=== PATIENT | female | born 1940 | race Caucasian/White ===

== ENCOUNTER → 2018-06-26 | Outpatient (CLI) | payer MEDICARE, BC ==
--- NOTE | 2018-06-26 12:17 | XR ---
EXAMINATION TYPE: XR chest 2V DATE OF EXAM: 06/26/2018 COMPARISON: 08/05/2016 TECHNIQUE: PA and lateral views submitted. HISTORY: Presurgical FINDINGS: The lungs are clear and there is no pneumothorax, pleural effusion, or focal pneumonia. Biapical pl eural thickening. Hyperinflation suggests COPD. Atherosclerotic change aorta. Hypertrophic and degene rative change of the spine. Diffuse osteopenia and arthropathy of the shoulders. IMPRESSION: 1. No acute process. Correlate for COPD.
== END | disposition home or self-care (01) ==
LOC: RADXRMAIN 11:45
PROVIDERS: ATTEND Internal Medicine
DX: Z01.818 Encounter for other preprocedural examination (principal)
CPT/HCPCS: 71046

== ENCOUNTER → 2018-12-20 | Outpatient (CLI) | payer MEDICARE, BC ==
--- NOTE | 2018-12-20 12:39 | XR ---
EXAMINATION TYPE: XR chest 2V DATE OF EXAM: 12/20/2018 COMPARISON: 06/26/2018 TECHNIQUE: PA and lateral views submitted. HISTORY: Preop FINDINGS: The lungs are clear and there is no pneumothorax, pleural effusion, or focal pneumonia. Hyperinflat ion suggests COPD and there is biapical pleural thickening. Diffuse osteopenia and arthropathy should ers. Atherosclerotic change of aorta. Nodule at the right lung base likely represents nipple shadow. Hypertrophic and degenerative change of the spine. IMPRESSION: 1. No acute process. Probable nipple shadow right lung base which could be confirmed with repeat exam with nipple markers.
== END | disposition home or self-care (01) ==
LOC: RADXRMAIN 12:08
PROVIDERS: ATTEND Internal Medicine
DX: Z01.818 Encounter for other preprocedural examination (principal)
CPT/HCPCS: 71046

== ENCOUNTER → 2019-04-09 | Outpatient (CLI) | payer MEDICARE, BC ==
--- NOTE | 2019-04-09 16:01 | XR ---
EXAMINATION TYPE: XR chest 2V DATE OF EXAM: 04/09/2019 COMPARISON: Prior chest x-ray 12/20/2018 HISTORY: Preop TECHNIQUE: Frontal and lateral views of the chest are obtained. FINDINGS: The aorta is dense. There is no focal air space opacity, pleural effusion, or pneumothorax seen. The cardiac silhouette size is stable, small. Apical pleural thickening is again noted. Dista l right clavicle shows stable postop resection change. Prominent lung volumes compatible with underly ing COPD. There is thoracic spondylosis. The osseous structures are intact. IMPRESSION: No acute cardiopulmonary process.
== END ==
LOC: RADXRMAIN 15:40
PROVIDERS: ATTEND Internal Medicine
DX: Z01.818 Encounter for other preprocedural examination (principal)
CPT/HCPCS: 71046

== ENCOUNTER 2021-08-06 13:07 | Inpatient (IN) | payer MEDICARE, BC ==
[2021-08-06] MEDS ORDERED: SODIUM CHLORIDE 0.9% 500 ML 500 ML IV STA (13:19)
[2021-08-06] MEDS ORDERED: ONDANSETRON 4 MG/2 ML VIAL IVP STA ×2 (13:19→17:38)
--- NOTE | 2021-08-06 13:34 | ED ---
General Adult HPI <Johnie Oshea - Last Filed: 08/07/21 00:20> - General Source: EMS Mode of arrival: EMS Limitations: no limitations <Gigi Whittington - Last Filed: 08/07/21 07:40> - General Chief complaint: Abdominal Pain Stated complaint: back & abd pain Time Seen by Provider: 08/06/21 13:18 - History of Present Illness Initial comments: Dictation was produced using [employer] dictation software. please excuse any grammatical, word or spelling errors. Chief Complaint: 81-year-old female multiple comorbidities presents with abdominal pain nausea and vomiting History of Present Illness: 81-year-old female she states that she's had a lump in her abdomen for several months. States that he goes in and out. Over the last 4-5 days patient noted that the lump was becoming more painful. She complains of nausea and vomiting. She denies ever been diagnosed with a hernia. No diarrhea. Denies any fevers. She has history of cholecystectomy. The ROS documented in this emergency department record has been reviewed and confirmed by me. Those systems with pertinent positive or negative responses have been documented in the HPI. All other systems are other negative and/or noncontributory. PHYSICAL EXAM: General Impression: Alert and oriented x3, not in acute distress HEENT: Normocephalic atraumatic, extra-ocular movements intact, pupils equal and reactive to light bilaterally, mucous membranes moist. Cardiovascular: Heart regular rate and rhythm Chest: Able to complete full sentences, no retractions, no tachypnea Abdomen: abdomen soft, palpatory mass to the epigastric area, hard round. Reduction was attempted with no success, Non-distended, no organomegaly Musculoskeletal: Pulses present and equal in all extremities, no peripheral edema Motor: no focal deficits noted Neurological: CN II-XII grossly intact, no focal motor or sensory deficits noted Skin: Intact with no visualized rashes Psych: Normal affect and mood ED course: 81-year-old female presents to the emergency department clinical presentation concerning for abdominal mass. differential includes incarcerated vs. strangulated hernia, and non specific abdominal mass. vital signs upon arri rasheed are within acceptable limits. Patient care is signed out to Dr. Oshea for follow-up of CT imaging results. Labs are unremarkable. Mild leukocytosis of 11.7. (Gigi Whittington) - Related Data Home Medications Medication Instructions Recorded Confirmed diazePAM [Diazepam] 5 mg PO BID PRN 10/20/14 08/06/21 HYDROcodone/APAP 5-325MG [Lehr 1 tab PO TID PRN 08/06/21 08/06/21 5-325] Allergies Allergy/AdvReac Type Severity Reaction Status Date / Time aspirin Allergy NASAL Verified 08/06/21 17:26 CONGESTON ibuprofen [From Motrin] Allergy Itching. Verified 08/06/21 17:26 NASAL CONGESTION levofloxacin [From Levaquin] Allergy Unknown Verified 08/06/21 17:26 primidone [From Mysoline] Allergy INCOHERENT Verified 08/06/21 17:26 propranolol HCl Allergy PALPATATION Verified 08/06/21 17:26 [From Inderal LA] S rofecoxib Allergy Unknown Verified 08/06/21 17:26 Sulfa (Sulfonamide Allergy Unknown Verified 08/06/21 17:26 Antibiotics) NON-STEROIDAL Allergy Itching Uncoded 08/05/16 10:54 ANTI-INFLAMMTORY AGEN Review of Systems ROS Other: All systems not noted in ROS Statement are negative. <Johnie Oshea - Last Filed: 08/07/21 00:20> ROS Other: All systems not noted in ROS Statement are negative. <Gigi Whittington - Last Filed: 08/07/21 07:40> ROS Statement: Those systems with pertinent positive or pertinent negative responses have been documented in the HPI. Past Medical History Past Medical History: Cancer, Chest Pain / Angina, COPD, GERD/Reflux, Hyperli pidemia, Mitral Valve Prolapse (MVP), Neurologic Disorder, Osteoarthritis (OA) Additional Past Medical History / Comment(s): CURRENTLY BEING TREATED FOR UTI. 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 PARKINSON'S WITH Essential TREMORS. VARICOSE VEINS. ARRYTHMIA. DIVERICULOSIS. HIATAL HERNIA. SCOLIOSIS. CHRONIC BACK PAIN. SKIN CANCER. History of Any Multi-Drug Resistant Organisms: None Reported Past Surgical History: Breast Surgery, Cholecystectomy, Heart Catheterization, Orthopedic Surgery, Tonsillectomy Additional Past Surgical History / Comment(s): 1995 HEART CATH. 1995 RIGHT LEG VASCULAR BYPASS. RIGHT CATARACT. LEFT BREAST BX (NEG). RIGHT ROTATOR CUFF. BRAIN SURGERY TO CORRECT TREMER 04/16/19 AT [facility] Past Anesthesia/Blood Transfusion Reactions: No Reported Reaction Past Psychological History: Anxiety Smoking Status: Former smoker Past Alcohol Use History: None Reported Past Drug Use History: None Reported - Past Family History Mother Family Medical History: Cancer, Neurologic Disorder <Gigi Whittington - Last Filed: 08/07/21 07:40> General Exam Limitations: no limitations <Gigi Whittington - Last Filed: 08/07/21 07:40> Course Vital Signs 08/06/21 08/06/21 08/06/21 13:19 14:25 15:25 Temperature 97.1 F L Pulse Rate 93 83 80 Respiratory 20 18 18 Rate Blood Pressure 169/80 156/71 O2 Sat by Pulse 95 96 96 Oximetry 08/06/21 08/06/21 08/06/21 16:25 17:00 18:43 Temperature 97.1 F L Pulse Rate 84 78 78 Respiratory 18 18 18 Rate Blood Pressure 154/73 154/73 O2 Sat by Pulse 96 96 96 Oximetry Medical Decision Making - Lab Data Result diagrams: 08/06/21 13:40 08/06/21 13:40 <Johnie Oshea - Last Filed: 08/07/21 00:20> - Lab Data Result diagrams: 08/06/21 13:40 08/06/21 13:40 <Gigi Whittington - Last Filed: 08/07/21 07:40> - Medical Decision Making Patient is signed out to me pending results of CT imaging and laboratory studies. Of note, patient is blind in her left eye and has chronic tremors. Prior physician was concerning for acute intra-abdominal process for her abdominal pain, nausea, vomiting and lack of appetite. I discussed this with the patient, and I agree with his workup. Laboratory studies were remarkable for a mild leukocytosis of 1.7. Lactate is negative. COVID is negative. Remainder of her labs are unremarkable. CT imaging of her abdomen and pelvis revealed a slightly enlarged AAA, 3.5 cm. There is also an intraluminal noncalcified plaque with occlusion at the iliac bifurcation of unknown chronicity. There is also diverticulosis without diverticulitis. On reevaluation, we did discuss the patient's bilateral lower extremities. She has chronic paresthesias for multiple months to a year of the right upper extremity with intact dopplerable pulses in bilateral lower extremities in the DP and PT region. Patient appears to have developed collaterals to provide blood flow to bilateral lower extremities. I contacted the on-call vascular surgeon, Dr. Saldivar, who is in agreement that there is nothing to be done acutely for these findings, as they are chronic. I discussed with her the results of her imaging and laboratory studies. She is still not tolerating by mouth intake at this time. We discuss admission for IV fluid hydration as well as to treat her nausea and vomiting she was in agreement this plan. She'll be given an additional dose Lehr here in the department. I spoke with the patient's admitting physician, Dr. Ye, who accepted the patient. Patient was therefore admitted to observation for intractable nausea and vomiting and abdominal pain of unknown etiology. She was admitted in stable condition. (Johnie Oshea) - Lab Data Lab Results 08/06/21 08/06/21 08/06/21 Range/Units 13:40 13:40 17:16 WBC 11.7 H (3.8-10.6) k/uL RBC 4.48 (3.80-5.40) m/uL Hgb 13.3 (11.4-16.0) gm/dL Hct 41.5 (34.0-46.0) % MCV 92.6 D (80.0-100.0) fL MCH 29.7 (25.0-35.0) pg MCHC 32.0 (31.0-37.0) g/dL RDW 14.1 (11.5-15.5) % Plt Count 262 (150-450) k/uL MPV 7.2 Neutrophils % 78 % Lymphocytes % 15 % Monocytes % 4 % Eosinophils % 1 % Basophils % 1 % Neutrophils # 9.2 H (1.3-7.7) k/uL Lymphocytes # 1.8 (1.0-4.8) k/uL Monocytes # 0.5 (0-1.0) k/uL Eosinophils # 0.1 (0-0.7) k/uL Basophils # 0.1 (0-0.2) k/uL Sodium 137 (137-145) mmol/L Potassium 4.5 (3.5-5.1) mmol/L Chloride 103 (98-107) mmol/L Carbon Dioxide 22 (22-30) mmol/L Anion Gap 12 mmol/L BUN 13 (7-17) mg/dL Creatinine 0.59 (0.52-1.04) mg/dL Est GFR (CKD-EPI)AfAm >90 (>60 ml/min/1.73 sqM) Est GFR (CKD-EPI)NonAf 86 (>60 ml/min/1.73 sqM) Glucose 109 H (74-99) mg/dL Plasma Lactic Acid Ld 0.9 (0.7-2.0) mmol/L Calcium 9.1 (8.4-10.2) mg/dL Total Bilirubin 0.9 (0.2-1.3) mg/dL AST 26 (14-36) U/L ALT 12 (4-34) U/L Alkaline Phosphatase 101 (38-126) U/L Total Protein 7.0 (6.3-8.2) g/dL Albumin 3.7 (3.5-5.0) g/dL Lipase 76 (23-300) U/L Disposition <Johnie Oshea - Last Filed: 08/07/21 00:20> <Gigi Whittington - Last Filed: 08/07/21 07:40> Clinical Impression: History of abdominal aortic aneurysm (AAA), Abdominal pain of unknown cause, Intractable nausea and vomiting Disposition: ADMITTED IP TO THIS [facility] Condition: Stable
[2021-08-06 14:01] LABS: Basophils # (A) 0.1 k/uL (0-0.2); Basophils % (A) 1 %; Eosinophils # (A) 0.1 k/uL (0-0.7); Eosinophils % (A) 1 %; HCT 41.5 % (34.0-46.0); HGB 13.3 gm/dL (11.4-16.0); Lymphocytes # (A) 1.8 k/uL (1.0-4.8); Lymphocytes % (A) 15 %; MCH 29.7 pg (25.0-35.0); Mean Platelet Volume 7.2; Monocytes # (A) 0.5 k/uL (0-1.0); Monocytes % (A) 4 %; Neutrophils # (A) 9.2 k/uL (1.3-7.7); Neutrophils % (A) 78 %; Platelet Count 262 k/uL (150-450); RBC 4.48 m/uL (3.80-5.40); RDW 14.1 % (11.5-15.5); WBC 11.7 k/uL (3.8-10.6)
[2021-08-06 14:04] LABS: ALT 12 U/L (4-34); AST 26 U/L (14-36); African American GFR (CKD) >90 (>60 ml/min/1.73 sqM); Albumin 3.7 g/dL (3.5-5.0); Alkaline Phosphatase 101 U/L (38-126); Anion Gap 12 mmol/L; Blood Urea Nitrogen 13 mg/dL (7-17); Calcium 9.1 mg/dL (8.4-10.2); Carbon Dioxide 22 mmol/L (22-30); Chloride 103 mmol/L (98-107); Glucose 109 mg/dL (74-99); Lipase 76 U/L (23-300); Non-African American GFR(CKD) 86 (>60 ml/min/1.73 sqM); Potassium 4.5 mmol/L (3.5-5.1); Sodium 137 mmol/L (137-145); Total Bilirubin 0.9 mg/dL (0.2-1.3)
[2021-08-06 14:05] LABS: MCV 92.6 fL (80.0-100.0)
--- NOTE | 2021-08-06 15:32 | CT ---
EXAMINATION TYPE: CT abdomen pelvis w con DATE OF EXAM: 08/06/2021 HISTORY: abdominal pain, painful hernia CT DLP: 627.9mGycm Automated Exposure Control for Dose Reduction was Utilized. CONTRAST: CT scan of the abdomen and pelvis is performed without oral but with IV Contrast, patient injected wi th 100 mL of Isovue 300. COMPARISON: CT abdomen and pelvis July 24, 2015 FINDINGS: LUNG BASES: Dependent atelectasis in both bases. Mild emphysematous change with mild to moderate biba silar linear scarring and/or atelectasis. LIVER/GB: Mild hepatomegaly redemonstrated. Subcentimeter thin-walled cyst left hepatic lobe lateral segment image 12 redemonstrated. Cholecystectomy clips. PANCREAS: No significant abnormality is seen. SPLEEN: No significant abnormality is seen. ADRENALS: No significant abnormality is seen. KIDNEYS: Symmetric cortical medullary uptake and excretion without hydronephrosis seen bilaterally. BOWEL: Suboptimal evaluation without enteric contrast and patient having little intra-abdominal fat. Stomach poorly distended and suboptimally evaluated. No suspicious small or large bowel dilatation. D iffuse colonic diverticula with prominent diverticulosis in the sigmoid colon. Moderate fecal promine nce in the rectum. UTERUS/ADNEXA: Uterus surgically absent or markedly atrophic. Scattered pelvic phleboliths. LYMPH NODES: No greater than 1cm abdominal or pelvic lymph nodes are appreciated. OSSEOUS STRUCTURES: Mild to moderate height loss L1 vertebra redemonstrated. Mild height loss superio r L3 endplate redemonstrated. Vacuum disc phenomenon with moderate right-sided disc space narrowing L 4-L5 level. Osseous structures are demineralized. OTHER: Persistent AAA up to 3.6 cm axial image 28 increased in size from prior. Significant noncalcif ied plaque is noted. There is absent blood flow in the bilateral common iliac arteries. Prominent col lateral vessels in the left abdomen noted. Surgical clips right groin region redemonstrated. IMPRESSION: 1. No obvious new hernia. 2. Enlarging AAA with significant intraluminal noncalcified plaque. Complete occlusion at iliac bifur cation. Correlate clinically for bilateral lower extremity paresthesia symptoms. 3. Prominent distal colonic diverticulosis. No convincing CT evidence for acute diverticulitis. Moder [id number] rectal fecal stasis. Overall nonobstructive bowel gas pattern.
[2021-08-06] MEDS ORDERED: HYDROcodone/APAP 5-325MG 1 EACH TAB PO STA ×2 (17:24→17:38)
[2021-08-06] MEDS ORDERED: SODIUM CHLORIDE 0.9% 1,000 ML IV STA (17:38)
[2021-08-06] MEDS ORDERED: ONDANSETRON 4 MG/2 ML VIAL IVP PRN (17:42)
[2021-08-06] MEDS ORDERED: NALOXONE 0.4 MG/ML 1 ML VIAL IV PRN (17:42)
[2021-08-06] MEDS: diazePAM 5 MG TAB PO PRN (22:27)
[2021-08-07] MEDS: HYDROcodone/APAP 5-325MG 1 EACH TAB PO PRN ×3 (01:03→22:56)
[2021-08-07 11:48] LABS: Basophils # (A) 0.1 k/uL (0-0.2); Basophils % (A) 1 %; Eosinophils # (A) 0.2 k/uL (0-0.7); Eosinophils % (A) 2 %; HCT 34.2 % (34.0-46.0); HGB 11.8 gm/dL (11.4-16.0); Lymphocytes # (A) 1.9 k/uL (1.0-4.8); Lymphocytes % (A) 27 %; MCH 31.4 pg (25.0-35.0); MCHC 34.6 g/dL (31.0-37.0); MCV 90.9 fL (80.0-100.0); Monocytes # (A) 0.3 k/uL (0-1.0); Monocytes % (A) 4 %; Neutrophils # (A) 4.4 k/uL (1.3-7.7); Neutrophils % (A) 62 %; Platelet Count 255 k/uL (150-450); RBC 3.76 m/uL (3.80-5.40); RDW 14.5 % (11.5-15.5)
--- NOTE | 2021-08-07 12:16 | P.HPIM ---
History of Present Illness H&P Date: 08/07/21 Chief Complaint: Nausea and vomiting This is an 81-year-old female patient who presented to the ER with complaints of nausea and right leg numbness. Patient has a past medical history of chest pain, COPD, GERD, hyperlipidemia, Parkinson's disease with essential tremors and chronic back pain. Patient reports that she has had issues with leg numbness ongoing for the past few months. CT of abdomen and pelvis completed showing no obvious hernia. Enlarging AAA with significant intraluminal noncalcified plaque. Complete occlusion of the iliac bifurcation correlate clinically for bilateral lower extremity paresthesia via symptoms. Prominent distal colonic diverticulosis no convincing CT evidence of acute diverticulitis moderate to severe rectal fecal stasis overall nonobstructive bowel gas pattern. At this time vascular surgery and GI services consulted. Patient maintained on normal saline. Repeat labs will be ordered. This time patient is resting comfortably in bed. Patient denies any nausea or vomiting at this time. Patient denies chest pain or shortness breath. Patient is still complaining of right lower infection many numbness pulses present bilaterally Review of Systems Please refer to HPI otherwise unremarkable Past Medical History Past Medical History: Cancer, Chest Pain / Angina, COPD, GERD/Reflux, Hyperlipidemia, Mitral Valve Prolapse (MVP), Neurologic Disorder, Osteoarthritis (OA) Additional Past Medical History / Comment(s): CURRENTLY BEING TREATED FOR UTI. 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 PARKINSON'S WITH Essential TREMORS. VARICOSE VEINS. ARRYTHMIA. DIVERICULOSIS. HIATAL HERNIA. SCOLIOSIS. CHRONIC BACK PAIN. SKIN CANCER. History of Any Multi-Drug Resistant Organisms: None Reported Past Surgical History: Breast Surgery, Cholecystectomy, Heart Catheterization, Orthopedic Surgery, Tonsillectomy Additional Past Surgical History / Comment(s): 1995 HEART CATH. 1995 RIGHT LEG VASCULAR BYPASS. RIGHT CATARACT. LEFT BREAST BX (NEG). RIGHT ROTATOR CUFF. BRAIN SURGERY TO CORRECT TREMER 04/16/[address] [facility] Past Anesthesia/Blood Transfusion Reactions: No Reported Reaction Past Psychological History: Anxiety Smoking Status: Former smoker Past Alcohol Use History: None Reported Past Drug Use History: None Reported - Past Family History Mother Family Medical History: Cancer, Neurologic Disorder Medications and Allergies Home Medications Medication Instructions Recorded Confirmed Type diazePAM [Diazepam] 5 mg PO BID PRN 10/20/14 08/06/21 History HYDROcodone/APAP 5-325MG [[place] 1 tab PO TID PRN 08/06/21 08/06/21 History 5-325] Allergies Allergy/AdvReac Type Severity Reaction Status Date / Time aspirin Allergy NASAL Verified 08/06/21 17:26 CONGESTON ibuprofen [From Motrin] Allergy Itching. Verified 08/06/21 17:26 NASAL CONGESTION levofloxacin [From Levaquin] Allergy Unknown Verified 08/06/21 17:26 primidone [From Mysoline] Allergy INCOHERENT Verified 08/06/21 17:26 propranolol HCl Allergy PALPATATION Verified 08/06/21 17:26 [From Inderal LA] S rofecoxib Allergy Unknown Verified 08/06/21 17:26 Sulfa (Sulfonamide Allergy Unknown Verified 08/06/21 17:26 Antibiotics) NON-STEROIDAL Allergy Itching Uncoded 08/05/16 10:54 ANTI-INFLAMMTORY AGEN Physical Exam Vitals: Vital Signs Temp Pulse Pulse Resp BP BP Pulse Ox 08/07/21 07:00 98.5 F 66 16 128/66 93 L 08/07/21 02:03 98.0 F 71 20 126/43 94 L 08/06/21 18:59 98.0 F 85 22 168/74 96 08/06/21 18:43 97.1 F L 78 18 154/73 96 08/06/21 17:00 78 18 96 08/06/21 16:25 84 18 154/73 96 08/06/21 15:25 80 18 96 08/06/21 14:25 83 18 156/71 96 08/06/21 13:19 97.1 F L 93 20 169/80 95 Intake and Output 08/06/21 08/07/21 08/07/21 22:59 06:59 14:59 Other: Voiding Method Bedpan # Voids 1 Weight 49.895 kg Head normocephalic Neck supple Lungs clear to auscultation bilaterally no wheezing or crackles Heart regular rate and rhythm S1-S2, no rub or gallop Abdomen is soft nontender nondistended positive bowel sounds no hepatosplenomegaly Extremities no edema Neuro alert and orientated to 3 Results CBC & Chem 7: 08/07/21 11:26 08/06/21 13:40 Labs: Abnormal Lab Results - Last 24 Hours (Table) 08/06/21 08/06/21 Range/Units 13:40 13:40 WBC 11.7 H (3.8-10.6) k/uL Neutrophils # 9.2 H (1.3-7.7) k/uL Glucose 109 H (74-99) mg/dL Thrombosis Risk Factor Assmnt - Choose All That Apply Any of the Below Risk Factors Present?: Yes Each Factor Represents 1 point: Abnormal pulmonary function (COPD) Other Risk Factors: Yes Each Risk Factor Represents 3 Points: Age 75 years or older Other congenital or acquired thrombophilia - If yes, enter type in comment: Yes Thrombosis Risk Factor Assessment Total Risk Factor Score: 4 Thrombosis Risk Factor Assessment Level: Moderate Risk Assessment and Plan Assessment: 1. Nausea and vomiting. GI service is consulted. Continue with normal saline 2. Aortic aneurysm. CTA completed showing enlarging AAA with significant intraluminal non-calcified plaque with complete occlusion at iliac bifurcation vascular surgery consulted 2. History of Parkinson's with essential tremor 3. 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 History of GERD 5. History of COPD 6. History of mitral valve prolapse 7. History of arthritis 8. History of cholecystectomy GI and vascular surgery consulted Continue normal saline at 50 Urinary analysis ordered Repeat labs ordered
--- NOTE | 2021-08-07 14:32 | P.GSCN ---
History of Present Illness Consult date: 08/07/21 Reason for Consult: Leg numbness. Requesting physician: Mark Ye History of present illness: Patient is an 81-year-old female who was admitted to the hospital with complaint of abdominal discomfort. This patient indicates she been experiencing some abdominal discomfort for the last 7-10 days" moves". This was associated with some nausea although no vomiting. She denies any melena nor hematochezia. She denied any previous similar symptoms. Since her admission essentially all this discomfort has resolved and the patient was able to eat a full lunch today. She does however complain of leg "numbness", and that her leg muscles feel that she has exercised to an extreme degree. She complains of this numbness and discomfort simultaneously. She denies any nonhealing ulceration. The patient indicated she is unable to walk any significant distance even with the aid of a walker. Patient has a history of right lower extremity revascularization, performed greater than 10 years ago. She has not seen her operative surgeon for greater than a 10 year time frame. She has a remote smoking history Past Medical History Past Medical History: Cancer, Chest Pain / Angina, COPD, GERD/Reflux, Hyperlipidemia, Mitral Valve Prolapse (MVP), Neurologic Disorder, Osteoarthritis (OA) Additional Past Medical History / Comment(s): CURRENTLY BEING TREATED FOR UTI. 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 PARKINSON'S WITH Essential TREMORS. VARICOSE VEINS. ARRYTHMIA. DIVERICULOSIS. HIATAL HERNIA. SCOLIOSIS. CHRONIC BACK PAIN. SKIN CANCER. History of Any Multi-Drug Resistant Organisms: None Reported Past Surgical History: Breast Surgery, Cholecystectomy, Heart Catheterization, Orthopedic Surgery, Tonsillectomy Additional Past Surgical History / Comment(s): 1995 HEART CATH. 1995 RIGHT LEG VASCULAR BYPASS. RIGHT CATARACT. LEFT BREAST BX (NEG). RIGHT ROTATOR CUFF. BRAIN SURGERY TO CORRECT TREMER 04/16/19 AT [facility] Past Anesthesia/Blood Transfusion Reactions: No Reported Reaction Past Psychological History: Anxiety Smoking Status: Former smoker Past Alcohol Use History: None Reported Past Drug Use History: None Reported - Past Family History Mother Family Medical History: Cancer, Neurologic Disorder Medications and Allergies Home Medications Medication Instructions Recorded Confirmed Type diazePAM [Diazepam] 5 mg PO BID PRN 10/20/14 08/06/21 History HYDROcodone/APAP 5-325MG [[place] 1 tab PO TID PRN 08/06/21 08/06/21 History 5-325] Allergies Allergy/AdvReac Type Severity Reaction Status Date / Time aspirin Allergy NASAL Verified 08/06/21 17:26 CONGESTON ibuprofen [From Motrin] Allergy Itching. Verified 08/06/21 17:26 NASAL CONGESTION levofloxacin [From Levaquin] Allergy Unknown Verified 08/06/21 17:26 primidone [From Mysoline] Allergy INCOHERENT Verified 08/06/21 17:26 propranolol HCl Allergy PALPATATION Verified 08/06/21 17:26 [From Inderal LA] S rofecoxib Allergy Unknown Verified 08/06/21 17:26 Sulfa (Sulfonamide Allergy Unknown Verified 08/06/21 17:26 Antibiotics) NON-STEROIDAL Allergy Itching Uncoded 08/05/16 10:54 ANTI-INFLAMMTORY AGEN Surgical - Exam Osteopathic Statement: *. No significant issues noted on an osteopathic structural exam other than those noted in the History and Physical/Consult. Vital Signs Temp Pulse Resp BP Pulse Ox 97.1 F L 93 20 169/80 95 08/06/21 13:19 08/06/21 13:19 08/06/21 13:19 08/06/21 13:19 08/06/21 13:19 - General well developed, well nourished, no distress - Neck no masses, no bruits - Respiratory normal expansion, normal respiratory effort, clear to auscultation - Cardiovascular Rhythm: regular - Abdomen Abdomen: soft, non tender, bowel sounds (Normal active bowel sounds. Palpable abdominal aortic aneurysm which is nontender to palpation.) - Integumentary no rash, no abnormal pigmentation Actually, brachial and radial pulses are intact bilaterally while the femoral, popliteal, dorsalis pedis and posterior tibial pulses are absent bilaterally. There is no leg edema. No ulceration of either lower extremities noted. The patient demonstrates normal sensation to her feet and that she accurately identified on a bilateral basis exactly where I was touching her foot. The toes are freely movable and nontender. Good capillary refill is noted. Results - Labs 08/07/21 11:26 08/06/21 13:40 Abnormal Lab Results - Last 24 Hours (Table) 08/07/21 Range/Units 11: RBC 3.76 L (3.80-5.40) m/uL Assessment and Plan Assessment: #1: Bilateral iliac artery occlusions, with some degree of arterial insufficiency of the lower extremities. The exact degree of this deficiency will require further testing. The patient may require surgical revascularization, the type of which is yet to be completely #2: 3.5 cm infrarenal abdominal aortic aneurysm with distal aortic occlusion. #3: Multiple medical problems including coronary artery disease, COPD, dyslipidemia, GERD, Parkinson's disease as well as osteoarthritis. Plan: #1: Arterial Doppler lateral lower extremities. #2: Carotid duplex. #3: Further recommendations pending results of the above-named testing. Time with Patient: Greater than 30
--- NOTE | 2021-08-07 15:22 | US ---
EXAMINATION TYPE: US carotid duplex BILAT DATE OF EXAM: 08/07/2021 COMPARISON: US dated 05/10/2019 CLINICAL HISTORY: Stenosis. EXAM MEASUREMENTS: RIGHT: Peak Systolic Velocity (PSV) cm/sec ----- Right CCA: 88.3 ----- Right ICA: 127.0 ----- Right ECA: 173.0 ICA/CCA ratio: 1.44 RIGHT: End Diastole cm/sec ----- Right CCA: 20.1 ----- Right ICA: 29.3 ----- Right ECA: 10.1 LEFT: Peak Systolic Velocity (PSV) cm/sec ----- Left CCA: 101.0 ----- Left ICA: 111.0 ----- Left ECA: 124.0 ICA/CCA ratio: 1.10 LEFT: End Diastole cm/sec ----- Left CCA: 23.4 ----- Left ICA: 27.0 ----- Left ECA: 12.6 VERTEBRALS (direction of flow): Right Vertebral: Antegrade Left Vertebral: Antegrade Rhythm: Normal Intimal thickening and shadowing plaque noted. IMPRESSION: There is antegrade flow in the vertebral arteries. The images and measurements suggest less than 50% stenosis in both internal carotid arteries. Criteria for Assigning % of Stenosis / Diameter reduction (Estimation based on the indirect measurements of the internal carotid artery velocities (ICA PSV). 1. Normal (no stenosis)=ICA PSV < 125 cm/s: ratio < 2.0: ICA EDV<40 cm/s. 2. Less than 50% stenosis=ICA PSV < 125 cm/s: ratio < 2.0: ICA EDV<40 cm/s. 3. 50 to 69% stenosis=ICA PSV of 125 to 230 cm/s: ration 2.0 ? 4.0: ICA EDV 40-100 cm/s. 4. Greater than 70% stenosis to near occlusion= ICA PSV > 230 cm/s: ratio > 4.0: ICA EDV > 100 cm/s. 5. Near occlusion= ICA PSV velocities may be low or undetectable: variable ratio and ICA EDV. 6. Total occlusion=unable to detect flow.
[2021-08-07] MEDS: diazePAM 5 MG TAB PO PRN (15:33)
[2021-08-07 16:39] LABS: Appearance,Urine Clear (Clear); Bilirubin,Urine Negative (Negative); Blood,Urine Negative (Negative); Color,Urine Light Yellow; Glucose,Urine (UA) Negative (Negative); Ketones,Urine Negative (Negative); Leukocyte Esterase,Urine Negative (Negative); Nitrite,Urine Negative (Negative); Protein,Urine Negative (Negative); Specific Gravity,Urine 1.007 (1.001-1.035)
[2021-08-07 18:08] LABS: African American GFR (CKD) 98.4 (60.0-200.0); Albumin 3.4 g/dL (3.80-4.90); Albumin/Globulin Ratio 1.7 (1.60-3.17); Anion Gap 4.1 mmol/L (4.00-12.00); BUN/Creat Ratio 18.33 Ratio (12.00-20.00); Calcium 8.2 mg/dL (8.7-10.3); Carbon Dioxide 26.9 mmol/L (21.6-31.8); Non-African American GFR(CKD) 84.9 (60.0-200.0); Potassium 4.2 mmol/L (3.5-5.5); Total Bilirubin 0.4 mg/dL (0.3-1.2); Total Protein 5.4 g/dL (6.2-8.2)
[2021-08-07] MEDS: ATORVASTATIN 10 MG TAB PO SCH (19:02)
[2021-08-08] MEDS: PANTOPRAZOLE 40 MG TABLET PO SCH (07:45)
[2021-08-08] MEDS: ASPIRIN 81 MG PO SCH (07:45)
[2021-08-08 09:00] LABS: Basophils # (A) 0.11 X 10*3/uL (0.00-0.10); Basophils % (A) 1.5 %; Eosinophils # (A) 0.28 X 10*3/uL (0.04-0.35); Eosinophils % (A) 3.9 %; HCT 36.4 % (37.2-46.3); HGB 11.8 g/dL (12.0-15.0); Lymphocytes # (A) 2.73 X 10*3/uL (0.90-5.00); Lymphocytes % (A) 37.8 %; MCH 29.9 pg (27.0-32.0); MCHC 32.4 g/dL (32.0-37.0); MCV 92.2 fL (80.0-97.0); Mean Platelet Volume 9.5 fL (9.5-12.2); Monocytes % (A) 8.3 %; Neutrophils # (A) 3.48 X 10*3/uL (1.80-7.70); Neutrophils % (A) 48.2 %; Platelet Count 244 X 10*3/uL (140-440); RBC 3.95 X 10*6/uL (4.10-5.20); RDW 14.3 % (11.5-14.5); WBC 7.22 X 10*3/uL (4.50-10.00)
[2021-08-08] MEDS ORDERED: ENOXAPARIN 40 MG/0.4 ML SYRINGE SQ SCH (09:00)
[2021-08-08 10:29] LABS: ALT <8 U/L (8-44); AST 15 U/L (13-35); African American GFR (CKD) 93.5 (60.0-200.0); Albumin/Globulin Ratio 1.67 (1.60-3.17); Alkaline Phosphatase 79 U/L (41-126); BUN/Creat Ratio 15.71 Ratio (12.00-20.00); Calcium 8.4 mg/dL (8.7-10.3); Carbon Dioxide 31.7 mmol/L (21.6-31.8); Chloride 105 mmol/L (96-109); Globulin 2.1 g/dL (1.6-3.3); Glucose 80 mg/dL (70-110); Non-African American GFR(CKD) 80.7 (60.0-200.0); Potassium 4.1 mmol/L (3.5-5.5); Sodium 138 mmol/L (135-145); Total Bilirubin 0.4 mg/dL (0.3-1.2); Total Protein 5.6 g/dL (6.2-8.2)
[2021-08-08] MEDS: HYDROcodone/APAP 5-325MG 1 EACH TAB PO PRN ×2 (12:03→20:59)
--- NOTE | 2021-08-08 13:31 | P.PN ---
Subjective Progress Note Date: 08/08/21 This is an 81-year-old female patient who presented to the ER with complaints of nausea and right leg numbness. Patient has a past medical history of chest pain, COPD, GERD, hyperlipidemia, Parkinson's disease with essential tremors and chronic back pain. Patient reports that she has had issues with leg numbness ongoing for the past few months. CT of abdomen and pelvis completed showing no obvious hernia. Enlarging AAA with significant intraluminal noncalcified plaque. Complete occlusion of the iliac bifurcation correlate clinically for bilateral lower extremity paresthesia via symptoms. Prominent distal colonic diverticulosis no convincing CT evidence of acute diverticulitis moderate to se christen rectal fecal stasis overall nonobstructive bowel gas pattern. At this time vascular surgery and GI services consulted. Patient maintained on normal saline. Repeat labs will be ordered. This time patient is resting comfortably in bed. Patient denies any nausea or vomiting at this time. Patient denies chest pain or shortness breath. Patient is still complaining of right lower infection many numbness pulses present bilaterally On 08/08/2021 Patient was seen and examined on the medical floor, he is alert and oriented x 3 in no distress, he denies any complaints there is no fever or chills no headache or dizziness no chest pain no shortness of breath no palpitation no cough no nausea or vomiting no abdominal pain no diarrhea no blood in the stools no burning with urination no frequency or urgency and no hematuria, there is no weakness or numbness in any of the extremities no change in vision speech, patient is complaining of severe tremor, she is complaining of pain in the left ribs area and in the mid and lower back, at this time will check x-ray continue with current medications Objective - Vital Signs Vital signs: Vital Signs Temp 97.6 F 08/08/21 07:00 Pulse 74 08/08/21 07:00 Resp 16 08/08/21 07:00 BP 152/78 08/08/21 07:00 Pulse Ox 95 08/08/21 07:00 Intake & Output 08/07/21 08/08/21 08/08/21 18:59 06:59 18:59 Intake Total 360 120 Balance 360 120 Intake: Oral 360 120 Other: Voiding Method Bedpan Bedpan # Voids 2 1 - Exam Head normocephalic Neck supple Lungs clear to auscultation bilaterally no wheezing or crackles Heart regular rate and rhythm S1-S2, no rub or gallop Abdomen is soft nontender nondistended positive bowel sounds no hepatosplenomegaly Extremities no edema Neuro alert and orientated to 3 - Labs CBC & Chem 7: 08/08/21 05:57 08/08/21 05:57 Labs: Abnormal Lab Results - Last 24 Hours (Table) 08/07/21 08/08/21 08/08/21 Range/Units 11:26 05:57 05:57 RBC 3.95 L (4.10-5.20) X 10*6/uL Hgb 11.8 L (12.0-15.0) g/dL Hct 36.4 L (37.2-46.3) % Basophils # 0.11 H (0.00-0.10) X 10*3/uL Anion Gap 1.30 L (4.00-12.00) mmol/L Calcium 8.2 L 8.4 L (8.7-10.3) mg/dL ALT <8 L (8-44) U/L Total Protein 5.4 L 5.6 L (6.2-8.2) g/dL Albumin 3.40 L 3.50 L (3.80-4.90) g/dL Assessment and Plan Assessment: 1. Nausea and vomiting. GI service is consulted. Continue with normal saline 2. Aortic aneurysm. CTA completed showing enlarging AAA with significant intraluminal non-calcified plaque with complete occlusion at iliac bifurcation vascular surgery consulted 2. History of Parkinson's with essential tremor 3. 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 History of GERD 5. History of COPD 6. History of mitral valve prolapse 7. History of arthritis 8. History of cholecystectomy GI and vascular surgery consulted Continue normal saline at 50 Urinary analysis ordered Repeat labs ordered
--- NOTE | 2021-08-08 13:32 | XR ---
Left RIBS. HISTORY: Chest pain COMPARISON: None. TECHNIQUE: 4 views left ribs were obtained. FINDINGS: The osseous structures are osteopenic but there is no focal rib abnormality including no fracture or bony destruction. IMPRESSION: No significant abnormality of the left ribs.
--- NOTE | 2021-08-08 13:34 | XR ---
Lumbar spine. HISTORY: Back pain. COMPARISON: None. TECHNIQUE: 3 views of the lumbar spine were obtained. These: The osseous structures are diffusely osteopenic. There is a mild chronic superior endplate compression fracture of L1. The lumbar vertebral segments a re normal in alignment. The disc spaces are well-maintained in height. The sacrum and SI joints normal. IMPRESSION: 1. Diffuse osteopenia. 2. Chronic superior endplate compression fracture of L1. 3. Normal alignment lumbar spine with no significant disc space narrowing.
--- NOTE | 2021-08-08 13:35 | XR ---
Thoracic spine. HISTORY: Back pain COMPARISON: None. TECHNIQUE: 4 views of the thoracic spine were obtained. FINDINGS: There is diffuse osteopenia. The thoracic vertebral segments are normal in height and alignment. The disc spaces are well-maintain ed. The paraspinal soft tissues appear normal. IMPRESSION: Diffuse osteopenia with no other significant abnormality seen.
[2021-08-08] MEDS: ATORVASTATIN 10 MG TAB PO SCH (20:59)
[2021-08-09] MEDS: diazePAM 5 MG TAB PO PRN ×2 (01:43→21:29)
[2021-08-09] MEDS: PANTOPRAZOLE 40 MG TABLET PO SCH (07:41)
[2021-08-09] MEDS: ASPIRIN 81 MG PO SCH (07:41)
[2021-08-09 09:20] LABS: Basophils % (A) 1.4 %; Eosinophils # (A) 0.27 X 10*3/uL (0.04-0.35); Eosinophils % (A) 3.9 %; HGB 11.9 g/dL (12.0-15.0); Lymphocytes # (A) 2.47 X 10*3/uL (0.90-5.00); Lymphocytes % (A) 35.2 %; MCH 28.9 pg (27.0-32.0); MCHC 31.3 g/dL (32.0-37.0); MCV 92.2 fL (80.0-97.0); Monocytes # (A) 0.66 X 10*3/uL (0.20-1.00); Monocytes % (A) 9.4 %; Neutrophils # (A) 3.47 X 10*3/uL (1.80-7.70); Neutrophils % (A) 49.5 %; Platelet Count 252 X 10*3/uL (140-440); RBC 4.12 X 10*6/uL (4.10-5.20); RDW 14.4 % (11.5-14.5); WBC 7.01 X 10*3/uL (4.50-10.00)
[2021-08-09 10:14] LABS: African American GFR (CKD) 98.4 (60.0-200.0); Albumin 3.3 g/dL (3.80-4.90); Albumin/Globulin Ratio 1.43 (1.60-3.17); Anion Gap 13.1 mmol/L (4.00-12.00); BUN/Creat Ratio 16.67 Ratio (12.00-20.00); Calcium 8.4 mg/dL (8.7-10.3); Carbon Dioxide 20.9 mmol/L (21.6-31.8); Globulin 2.3 g/dL (1.6-3.3); Non-African American GFR(CKD) 84.9 (60.0-200.0); Potassium 3.9 mmol/L (3.5-5.5); Total Bilirubin 0.4 mg/dL (0.2-1.2); Total Protein 5.6 g/dL (6.2-8.2)
--- NOTE | 2021-08-09 12:57 | P.PN ---
Subjective Progress Note Date: 08/09/21 Patient was seen and examined lying in bed. States she still has bilateral lower extremity discomfort. States she has numbness and tingling in her right lower extremity, states she has had this for years. Pain is greatest in her right great toe. She denies any fevers or chills. Patient is scheduled to have a arterial study of the lower extremities, however the machine at this time is currently not working. Carotid Doppler shows antegrade flow in vertebral arteries. Images the measurement suggests less than 50% stenosis in both internal carotid arteries. Objective - Vital Signs Vital signs: Vital Signs Temp 98.6 F 08/09/21 07:53 Pulse 71 08/09/21 08:00 Resp 18 08/09/21 08:00 BP 118/66 08/09/21 07:53 Pulse Ox 94 L 08/09/21 07:53 Intake & Output 08/08/21 08/09/21 08/09/21 18:59 06:59 18:59 Intake Total 480 180 Balance 480 180 Intake: Oral 480 180 Other: Voiding Method Bedpan Bedpan Bedpan # Voids 1 1 1 - Exam General appearance: The patient is alert, oriented, appears in no acute distress. HET: Head is normocephalic and atraumatic. Abdomen: Soft, nontender, nondistended. Extremities: Normal skin color and turgor. No cyanosis, rash, ulceration, clubbing, or edema. Nonpalpable pulses. Positive femoral and popliteal Doppler signals bilaterally. Left posterior tibialis Doppler signal present, right dorsalis pedis Doppler signal present. Bilateral lower extremities warm to the touch. Patient is able to freely move bilateral lower extremities including toes. Neurological: No focal deficits. Strength and sensation are grossly intact. - Labs CBC & Chem 7: 08/09/21 05:16 08/09/21 05:16 Labs: Abnormal Lab Results - Last 24 Hours (Table) 08/09/21 08/09/21 Range/Units 05:16 05:16 Hgb 11.9 L (12.0-15.0) g/dL MCHC 31.3 L (32.0-37.0) g/dL Carbon Dioxide 20.9 L (21.6-31.8) mmol/L Anion Gap 13.10 H (4.00-12.00) mmol/L Calcium 8.4 L (8.7-10.3) mg/dL Total Protein 5.6 L (6.2-8.2) g/dL Albumin 3.30 L (3.80-4.90) g/dL Albumin/Globulin Ratio 1.43 L (1.60-3.17) g/dL Assessment and Plan Assessment: 1. 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 2. 3.5 cm infrarenal abdominal aortic aneurysm with distal aortic occlusion 3. History of coronary artery disease 4. History of COPD 5. History of dyslipidemia 6. Parkinson's disease Plan: 1. Arterial Doppler bilateral lower extremities ordered 2. Carotid duplex ordered and reviewed 3. Further recommendations based on further testing The impression and plan of care has been dictated as directed. Dr. Oliveros I performed a history and examination of this patient, discussed the same with the dictator. I agree with the dictator's note ,documented as a scribe. Any additional findings or plans will be noted.
--- NOTE | 2021-08-09 19:27 | P.PN ---
Subjective Progress Note Date: 08/09/21 This is an 81-year-old female patient who presented to the ER with complaints of nausea and right leg numbness. Patient has a past medical history of chest pain, COPD, GERD, hyperlipidemia, Parkinson's disease with essential tremors and chronic back pain. Patient reports that she has had issues with leg numbness ongoing for the past few months. CT of abdomen and pelvis completed showing no obvious hernia. Enlarging AAA with significant intraluminal noncalcified plaque. Complete occlusion of the iliac bifurcation correlate clinically for bilateral lower extremity paresthesia via symptoms. Prominent distal colonic diverticulosis no convincing CT evidence of acute diverticulitis moderate to se christen rectal fecal stasis overall nonobstructive bowel gas pattern. At this time vascular surgery and GI services consulted. Patient maintained on normal saline. Repeat labs will be ordered. This time patient is resting comfortably in bed. Patient denies any nausea or vomiting at this time. Patient denies chest pain or shortness breath. Patient is still complaining of right lower infection many numbness pulses present bilaterally On 08/08/2021 Patient was seen and examined on the medical floor, he is alert and oriented x 3 in no distress, he denies any complaints there is no fever or chills no headache or dizziness no chest pain no shortness of breath no palpitation no cough no nausea or vomiting no abdominal pain no diarrhea no blood in the stools no burning with urination no frequency or urgency and no hematuria, there is no weakness or numbness in any of the extremities no change in vision speech, patient is complaining of severe tremor, she is complaining of pain in the left ribs area and in the mid and lower back, at this time will check x-ray continue with current medications On 08/09/2021 Patient was seen and examined on the medical floor, he is alert and oriented x 3 in no distress, he denies any complaints there is no fever or chills no headache or dizziness no chest pain no shortness of breath no palpitation no cough no nausea or vomiting no abdominal pain no diarrhea no blood in the stools no burning with urination no frequency or urgency and no hematuria, there is no weakness or numbness in any of the extremities no change in vision speech or gait. X-ray of the mid and lower back and the left ribs was reviewed, continue with current medications at this time, tremor is slightly improving, will follow in a.m. Objective - Vital Signs Vital signs: Vital Signs Temp 98.6 F 08/09/21 07:53 Pulse 71 08/09/21 08:00 Resp 18 08/09/21 08:00 BP 118/66 08/09/21 07:53 Pulse Ox 94 L 08/09/21 07:53 Intake & Output 08/08/21 08/09/21 08/09/21 18:59 06:59 18:59 Intake Total 480 180 Balance 480 180 Intake: Oral 480 180 Other: Voiding Method Bedpan Bedpan Bedpan # Voids 1 1 1 - Exam Head normocephalic Neck supple Lungs clear to auscultation bilaterally no wheezing or crackles Heart regular rate and rhythm S1-S2, no rub or gallop Abdomen is soft nontender nondistended positive bowel sounds no hepatos plenomegaly Extremities no edema Neuro alert and orientated to 3 - Labs CBC & Chem 7: 08/09/21 05:16 08/09/21 05:16 Labs: Abnormal Lab Results - Last 24 Hours (Table) 08/09/21 08/09/21 Range/Units 05:16 05:16 Hgb 11.9 L (12.0-15.0) g/dL MCHC 31.3 L (32.0-37.0) g/dL Carbon Dioxide 20.9 L (21.6-31.8) mmol/L Anion Gap 13.10 H (4.00-12.00) mmol/L Calcium 8.4 L (8.7-10.3) mg/dL Total Protein 5.6 L (6.2-8.2) g/dL Albumin 3.30 L (3.80-4.90) g/dL Albumin/Globulin Ratio 1.43 L (1.60-3.17) g/dL Assessment and Plan Assessment: 1. Nausea and vomiting. GI service is consulted. Continue with normal saline 2. Aortic aneurysm. CTA completed showing enlarging AAA with significant intraluminal non-calcified plaque with complete occlusion at iliac bifurcation vascular surgery consulted 2. History of Parkinson's with essential tremor 3. 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 History of GERD 5. History of COPD 6. History of mitral valve prolapse 7. History of arthritis 8. History of cholecystectomy GI and vascular surgery consulted Continue normal saline at 50 Urinary analysis ordered Repeat labs ordered
[2021-08-09] MEDS: ATORVASTATIN 10 MG TAB PO SCH (20:00)
[2021-08-09] MEDS: HYDROcodone/APAP 5-325MG 1 EACH TAB PO PRN (20:01)
[2021-08-10] MEDS: HYDROcodone/APAP 5-325MG 1 EACH TAB PO PRN ×3 (07:14→22:08)
[2021-08-10] MEDS: PANTOPRAZOLE 40 MG TABLET PO SCH (08:33)
[2021-08-10] MEDS: ASPIRIN 81 MG PO SCH (08:33)
[2021-08-10] MEDS ORDERED: MAGNESIUM HYDROXIDE 2,400 MG/10 ML CUP PO PRN (13:11)
--- NOTE | 2021-08-10 13:23 | P.PN ---
Subjective Progress Note Date: 08/10/21 Patient was seen and examined lying in bed. No acute changes through the night. No complaints of any changes in pain in lower extremity. She denies any abdominal pain, nausea, vomiting, fevers or chills. Denies any chest pain or shortness of breath. Objective - Vital Signs Vital signs: Vital Signs Temp 98.0 F 08/10/21 07:13 Pulse 84 08/10/21 07:13 Resp 14 08/10/21 07:13 BP 120/68 08/10/21 07:13 Pulse Ox 96 08/10/21 05:11 Intake & Output 08/09/21 08/10/21 08/10/21 18:59 06:59 18:59 Intake Total 180 Balance 180 Intake: Oral 180 Other: Voiding Method Bedpan Toilet Bedpan # Voids 1 2 - Exam General appearance: The patient is alert, oriented, appears in no acute distress. HET: Head is normocephalic and atraumatic. Abdomen: Soft, nontender, nondistended. Extremities: Normal skin color and turgor. No cyanosis, rash, ulceration, clubbing, or edema. Nonpalpable pulses. Positive femoral and popliteal Doppler signals bilaterally. Left posterior tibialis Doppler signal present, right dorsalis pedis Doppler signal present. Bilateral lower extremities warm to the touch. Patient is able to freely move bilateral lower extremities including toes. Neurological: No focal deficits. Strength and sensation are grossly intact. - Labs CBC & Chem 7: 08/09/21 05:16 08/09/21 05:16 Labs: Abnormal Lab Results - Last 24 Hours (Table) 08/09/21 Range/Units 05:16 Carbon Dioxide 20.9 L (21.6-31.8) mmol/L Anion Gap 13.10 H (4.00-12.00) mmol/L Calcium 8.4 L (8.7-10.3) mg/dL Total Protein 5.6 L (6.2-8.2) g/dL Albumin 3.30 L (3.80-4.90) g/dL Albumin/Globulin Ratio 1.43 L (1.60-3.17) g/dL Assessment and Plan Assessment: 1. 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 2. 3.5 cm infrarenal abdominal aortic aneurysm with distal aortic occlusion 3. History of coronary artery disease 4. History of COPD 5. History of dyslipidemia 6. Parkinson's disease Plan: 1. Arterial Doppler bilateral lower extremities ordered, however machine not working 2. Carotid duplex ordered and reviewed At this time patient is still not wanting any surgical intervention. This was discussed with her son Dylan. Discussed there is no urgency to any testing or intervention and patient may be followed up outpatient with vascular surgery. Recommend follow-up with Dr. Vasquez per patient's request in 1-2 weeks. At that time patient can undergo arterial study in the office and further recommendations can be made. Thank you for this consultation, the patient is stable for discharge from a vascular surgical standpoint. Patient may follow-up with vascular surgery if she chooses. The impression and plan of care has been dictated as directed. Dr. Brunner I performed a history and examination of this patient, discussed the same with the dictator. I agree with the dictator's note ,documented as a scribe. Any additional findings or plans will be noted.
--- NOTE | 2021-08-10 17:53 | P.PN ---
Subjective Progress Note Date: 08/10/21 This is an 81-year-old female patient who presented to the ER with complaints of nausea and right leg numbness. Patient has a past medical history of chest pain, COPD, GERD, hyperlipidemia, Parkinson's disease with essential tremors and chronic back pain. Patient reports that she has had issues with leg numbness ongoing for the past few months. CT of abdomen and pelvis completed showing no obvious hernia. Enlarging AAA with significant intraluminal noncalcified plaque. Complete occlusion of the iliac bifurcation correlate clinically for bilateral lower extremity paresthesia via symptoms. Prominent distal colonic diverticulosis no convincing CT evidence of acute diverticulitis moderate to se christen rectal fecal stasis overall nonobstructive bowel gas pattern. At this time vascular surgery and GI services consulted. Patient maintained on normal saline. Repeat labs will be ordered. This time patient is resting comfortably in bed. Patient denies any nausea or vomiting at this time. Patient denies chest pain or shortness breath. Patient is still complaining of right lower infection many numbness pulses present bilaterally On 08/08/2021 Patient was seen and examined on the medical floor, he is alert and oriented x 3 in no distress, he denies any complaints there is no fever or chills no headache or dizziness no chest pain no shortness of breath no palpitation no cough no nausea or vomiting no abdominal pain no diarrhea no blood in the stools no burning with urination no frequency or urgency and no hematuria, there is no weakness or numbness in any of the extremities no change in vision speech, patient is complaining of severe tremor, she is complaining of pain in the left ribs area and in the mid and lower back, at this time will check x-ray continue with current medications On 08/09/2021 Patient was seen and examined on the medical floor, he is alert and oriented x 3 in no distress, he denies any complaints there is no fever or chills no headache or dizziness no chest pain no shortness of breath no palpitation no cough no nausea or vomiting no abdominal pain no diarrhea no blood in the stools no burning with urination no frequency or urgency and no hematuria, there is no weakness or numbness in any of the extremities no change in vision speech or gait. X-ray of the mid and lower back and the left ribs was reviewed, continue with current medications at this time, tremor is slightly improving, will follow in a.m. On 08/10/2021 Patient was seen and examined on the medical floor, he is alert and oriented x 3 in no distress, he denies any complaints there is no fever or chills no headache or dizziness no chest pain no shortness of breath no palpitation no cough no nausea or vomiting no abdominal pain no diarrhea no blood in the stools no burning with urination no frequency or urgency and no hematuria, there is no weakness or numbness in any of the extremities no change in vision speech or gait. Patient is improving gradually at this time nausea a nd vomiting has resolved, she is still having pain and numbness in her lower extremities, she is not sure if she wants to proceed with vascular surgery, she will follow-up with vascular surgeon as outpatient, tremor has improved significantly with the use of amantadine, will continue at this time, discharge to home was discussed with the patient however she stated that she is not ready today plan for discharge tomorrow Objective - Vital Signs Vital signs: Vital Signs Temp 97.9 F 08/10/21 11:20 Pulse 67 08/10/21 11:20 Resp 14 08/10/21 11:20 BP 137/61 08/10/21 11:20 Pulse Ox 93 L 08/10/21 11:20 Intake & Output 08/09/21 08/10/21 08/10/21 18:59 06:59 18:59 Intake Total 180 Balance 180 Intake: Oral 180 Other: Voiding Method Bedpan Toilet Toilet Bedpan # Voids 1 2 - Exam Head normocephalic Neck supple Lungs clear to auscultation bilaterally no wheezing or crackles Heart regular rate and rhythm S1-S2, no rub or gallop Abdomen is soft nontender nondistended positive bowel sounds no hepatosplenomegaly Extremities no edema Neuro alert and orientated to 3 - Labs CBC & Chem 7: 08/09/21 05:16 08/09/21 05:16 Assessment and Plan Assessment: 1. Nausea and vomiting. GI service is consulted. Continue with normal saline 2. Aortic aneurysm. CTA completed showing enlarging AAA with significant intraluminal non-calcified plaque with complete occlusion at iliac bifurcation vascular surgery consulted 2. History of Parkinson's with essential tremor 3. 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 History of GERD 5. History of COPD 6. History of mitral valve prolapse 7. History of arthritis 8. History of cholecystectomy GI and vascular surgery consulted Continue normal saline at 50 Urinary analysis ordered Repeat labs ordered
[2021-08-10] MEDS: diazePAM 5 MG TAB PO PRN (20:22)
[2021-08-10] MEDS: ATORVASTATIN 10 MG TAB PO SCH (20:22)
[2021-08-11 07:11] VITALS: BP 109/64; PULSE 77; RESP 12; TEMP 98.3
[2021-08-11] MEDS: ASPIRIN 81 MG PO SCH (07:55)
[2021-08-11] MEDS: PANTOPRAZOLE 40 MG TABLET PO SCH (07:56)
[2021-08-11] MEDS: HYDROcodone/APAP 5-325MG 1 EACH TAB PO PRN (08:03)
--- NOTE | 2021-08-11 09:02 | P.DS ---
Providers Date of admission: 08/07/21 15:04 Expected date of discharge: 08/11/21 Attending physician: Mark Ye Consults: 08/07/21 12:07 Consult Physician Routine Consulting Provider: Hoang Brunner Consult Reason/Comments: Left leg numbness Do you want consulting provider notified?: Yes Primary care physician: Mark Ye [place] Hospital Course: Diagnosis on discharge: 1. Nausea and vomiting. GI service is consulted. Continue with normal saline 2. Aortic aneurysm. CTA completed showing enlarging AAA with significant intraluminal non-calcified plaque with complete occlusion at iliac bifurcation vascular surgery consulted 2. History of Parkinson's with essential tremor 3. 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 History of GERD 5. History of COPD 6. History of mitral valve prolapse 7. History of arthritis 8. History of cholecystectomy Hospital course: This is an 81-year-old female patient who presented to the ER with complaints of nausea and right leg numbness. Patient has a past medical history of chest pain, COPD, GERD, hyperlipidemia, Parkinson's disease with essential tremors and chronic back pain. Patient reports that she has had issues with leg numbness ongoing for the past few months. CT of abdomen and pelvis completed showing no obvious hernia. Enlarging AAA with significant intraluminal noncalcified plaque. Complete occlusion of the iliac bifurcation correlate clinically for bilateral lower extremity paresthesia via symptoms. Prominent distal colonic diverticulosis no convincing CT evidence of acute diverticulitis moderate to severe rectal fecal stasis overall nonobstructive bowel gas pattern. At this time vascular surgery and GI services consulted. Patient maintained on normal saline. Repeat labs will be ordered. This time patient is resting comfortably in bed. Patient denies any nausea or vomiting at this time. Patient denies chest pain or shortness breath. Patient is still complaining of right lower infection many numbness pulses present bilaterally On 08/08/2021 Patient was seen and examined on the medical floor, she is alert and oriented x 3 in no distress, she denies any complaints there is no fever or chills no headache or dizziness no chest pain no shortness of breath no palpitation no cough no nausea or vomiting no abdominal pain no diarrhea no blood in the stools no burning with urination no frequency or urgency and no hematuria, there is no weakness or numbness in any of the extremities no change in vision speech, patient is complaining of severe tremor, she is complaining of pain in the left ribs area and in the mid and lower back, at this time will check x-ray continue with current medications On 08/09/2021 Patient was seen and examined on the medical floor, she is alert and oriented x 3 in no distress, she denies any complaints there is no fever or chills no headache or dizziness no chest pain no shortness of breath no palpitation no cough no nausea or vomiting no abdominal pain no diarrhea no blood in the stools no burning with urination no frequency or urgency and no hematuria, there is no weakness or numbness in any of the extremities no change in vision speech or gait. X-ray of the mid and lower back and the left ribs was reviewed, continue with current medications at this time, tremor is slightly improving, will follow in a.m. On 08/10/2021 Patient was seen and examined on the medical floor, she is alert and oriented x 3 in no distress, she denies any complaints there is no fever or chills no headache or dizziness no chest pain no shortness of breath no palpitation no cough no nausea or vomiting no abdominal pain no diarrhea no blood in the stools no burning with urination no frequency or urgency and no hematuria, there is no weakness or numbness in any of the extremities no change in vision speech or gait. Patient is improving gradually at this time nausea and vomiting has resolved, she is still having pain and numbness in her lower extremities, she is not sure if she wants to proceed with vascular surgery, she will follow-up with vascular surgeon as outpatient, tremor has improved significantly with the use of amantadine, will continue at this time, discharge to home was discussed with the patient however she stated that she is not ready today plan for discharge tomorrow On 08/11/2021 patient was seen and examined on the medical floor she is alert and oriented 3 in no apparent distress, she reports improvement in her tremors, and reports improvement in nausea and vomiting and abdominal discomfort, she was started on Protonix and milk of magnesia during this admission, she was also started on amantadine for tremor, patient is improved and will be discharged to home today, she will follow-up with vascular surgery as outpatient for further evaluation and treatment and decision regarding further surgical options. She will be followed in our office within 1 week Patient Condition at Discharge: Stable Plan - Discharge Summary New Discharge Prescriptions: New Aspirin 81 mg PO DAILY tab Atorvastatin [Lipitor] 10 mg PO HS tab Pantoprazole [Protonix] 40 mg PO AC-BRKFST tab Magnesium Hydroxide [Milk of Magnesia Concentrate] 2,400 mg PO DAILY PRN ml PRN Reason: Constipation amantadine HCL [Symmetrel] 100 mg PO DAILY cap Continue diazePAM [Diazepam] 5 mg PO BID PRN PRN Reason: Anxiety HYDROcodone/APAP 5-325MG [[place] 5-325] 1 tab PO TID PRN PRN Reason: Pain Discharge Medication List diazePAM [Diazepam] 5 mg PO BID PRN 10/20/14 [History] HYDROcodone/APAP 5-325MG [[place] 5-325] 1 tab PO TID PRN 08/06/21 [History] Aspirin 81 mg PO DAILY tab 08/11/21 [Rx] Atorvastatin [Lipitor] 10 mg PO HS tab 08/11/21 [Rx] Magnesium Hydroxide [Milk of Magnesia Concentrate] 2,400 mg PO DAILY PRN ml 08/11/21 [Rx] Pantoprazole [Protonix] 40 mg PO AC-BRKFST tab 08/11/21 [Rx] amantadine HCL [Symmetrel] 100 mg PO DAILY cap 08/11/21 [Rx] Follow up Appointment(s)/Referral(s): Ramon Alvarado DO [Doctor of Osteopathic Medicine] - 1 Week Mark Ye MD [Primary Care Provider] - 1-2 days
== END 2021-08-11 10:30 | disposition home or self-care (01) | DRG 300 ==
LOC: EC 13:07 → 6NMEDSUR 17:42 → OBSVTOIN 08-07 15:04 → 5NMEDONC 08-09 17:41
PROVIDERS: ADMIT Internal Medicine; ATTEND Internal Medicine
DX: I71.4 Abdominal aortic aneurysm, without rupture (principal); I74.5 Embolism and thrombosis of iliac artery; Z20.822 Contact with and (suspected) exposure to COVID-19; D72.829 Elevated white blood cell count, unspecified; E78.5 Hyperlipidemia, unspecified; F41.9 Anxiety disorder, unspecified; K57.30 Diverticulosis of large intestine without perforation or abscess without bleeding; J44.9 Chronic obstructive pulmonary disease, unspecified; I25.10 Atherosclerotic heart disease of native coronary artery without angina pectoris; I34.1 Nonrheumatic mitral (valve) prolapse; I83.90 Asymptomatic varicose veins of unspecified lower extremity; K59.89 Other specified functional intestinal disorders; R20.0 Anesthesia of skin; G20 Parkinson's disease; G25.0 Essential tremor; H54.62 Unqualified visual loss, left eye, normal vision right eye; I77.1 Stricture of artery; K21.9 Gastro-esophageal reflux disease without esophagitis; M19.90 Unspecified osteoarthritis, unspecified site; M41.9 Scoliosis, unspecified; Z87.19 Personal history of other diseases of the digestive system; Z85.828 Personal history of other malignant neoplasm of skin; Z86.79 Personal history of other diseases of the circulatory system; Z87.828 Personal history of other (healed) physical injury and trauma; Z87.891 Personal history of nicotine dependence; Z90.49 Acquired absence of other specified parts of digestive tract; Z88.8 Allergy status to other drugs, medicaments and biological substances; Z88.1 Allergy status to other antibiotic agents; Z88.6 Allergy status to analgesic agent; Z88.2 Allergy status to sulfonamides
CPT/HCPCS: 36415; 72072; 72100; 74177; 80053; 81003; 83605; 83690; 85025; 87635; 93005; 93880; 96361; 96374; 99285

== ENCOUNTER → 2021-08-31 | Outpatient (CLI) | payer MEDICARE, BC ==
[2021-08-31 17:43] LABS: African American GFR (CKD) >90 (>60 ml/min/1.73 sqM); Blood Urea Nitrogen 15 mg/dL (7-17); Non-African American GFR(CKD) 85 (>60 ml/min/1.73 sqM)
--- NOTE | 2021-08-31 20:14 | CT ---
EXAMINATION TYPE: CT angio abd aorta w/Runoff DATE OF EXAM: 08/31/2021 HISTORY: occlusion of abdominal aorta CT DLP: 1115.7mGycm Automated Exposure Control for Dose Reduction was Utilized. CONTRAST: CT scan of the abdomen and pelvis is performed with IV Contrast, patient injected with 125cc mL of Is ovue 370. COMPARISON: 08/06/2021 FINDINGS: LUNG BASES: Emphysematous changes are seen with areas of subsegmental consolidation. No pleural effus ion or pneumothorax.. LIVER/GB: Mild hepatomegaly redemonstrated. Subcentimeter thin-walled cyst left hepatic lobe lateral segment redemonstrated. Cholecystectomy clips. Hypodensity within the dome of the liver is too small to characterize but likely related to simple cyst. 1 cm hyperdensity in the dome liver may represent a flash hemangioma. Additional 3 mm hyperdense lesion in the right margin of the dome of the liver a lso may represent flash hemangioma. Other etiologies not excluded. . PANCREAS: No significant abnormality is seen. SPLEEN: No significant abnormality is seen. ADRENALS: No significant abnormality is seen. KIDNEYS: No significant abnormality is seen. BOWEL: Nonspecific gas pattern changes of diverticulosis. LYMPH NODES: No greater than 1cm abdominal or pelvic lymph nodes are appreciated. OSSEOUS STRUCTURES: Hypertrophic and degenerative change of the spine. Loss of vertebral body height compatible superior endplate compression fractures which appear chronic at levels L1 and L3.. OTHER: There is atherosclerotic change and ectasia of the distal thoracic aorta measuring a maximal dimensio n of 3.4 cm. Eccentric atherosclerotic plaque and ectasia of the proximal abdominal aorta is noted wi th a maximal measurement of 3.2 cm compatible with mild aneurysmal dilation above the level of the re nal arteries. Origin of the renal arteries appear to be patent. There does appear to be a larger intra-abdominal ao rtic aneurysm measuring 3.7 cm originating approximately 2 cm below the lowest renal artery. There is a marked luminal reduction of aorta near the level of the aortic bifurcation suggestion of aortic oc clusion at the level of the bifurcation and proximal iliac arteries. There are is reconstitution of segments of the internal iliac artery bilaterally greater on the left with minimal reconstitution seen on the right. Reconstitution distally seen at the level of the femoral artery bilaterally which appears to be dimin utive bilaterally. Surgical clip in the right groin region obscures portions of the common femoral ar galina and may be occluded. Proximal superficial femoral artery appears to be patent bilaterally with f illing of portions of the deep femoral artery. Multifocal eccentric plaque is seen on the left. No si gnificant stenosis. Popliteal artery appears to be patent bilaterally. Tibial peroneal trunk is paten t bilaterally. Trifurcation vessels are somewhat diminutive in size. Peroneal artery is seen to level the distal calf. Anterior tibial and posterior tibial arteries are seen the level of the ankle.. The celiac axis and SMA appear markedly diminutive in size and should be correlated clinically. Steno ses not excluded. IMPRESSION: 1. Bilobed abdominal aortic aneurysm as discussed above with maximum dimension of 3.7 cm extensive at herosclerotic plaque. There is occlusion of the abdominal aorta just above the level aortic bifurcati on with nonfilling of bilateral iliac arteries. 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 Reconstitution is seen at the level of the left common femoral artery and superficial femoral artery and popliteal artery and runoff is seen to be patent as discussed above bilaterally. Note is made the re is a surgical clip in the right groin which obscures portions of the right common femoral artery a nd therefore is limited. Given the limitation exam recommend dedicated arteriogram. 2. There are multiple hepatic lesions two of which is hyperdense and may represent flash hemangioma t oo small to characterize. 3. The celiac axis and SMA appear markedly diminutive in caliber stenosis in the differential diagnos is correlate clinically.
== END | disposition home or self-care (01) ==
LOC: RADCTMAIN 16:50
PROVIDERS: ATTEND Surgery
DX: I71.4 Abdominal aortic aneurysm, without rupture (principal); I70.0 Atherosclerosis of aorta; K76.9 Liver disease, unspecified
CPT/HCPCS: 82565; 84520; 75635; 36415; Q9967

== ENCOUNTER 2025-04-18 14:24 | Emergency (ER) | payer MEDICARE, BC ==
[2025-04-18 14:36] VITALS: RESP 18; TEMP 98.1
[2025-04-18 15:44] LABS: Appearance,Urine Cloudy (Clear); Bacteria,Urine Occasional /hpf; Bilirubin,Urine Negative (Negative); Blood,Urine Negative (Negative); Color,Urine Yellow; Glucose,Urine (UA) Negative (Negative); Ketones,Urine Negative (Negative); Leukocyte Esterase,Urine Large (Negative); Mucus,Urine Rare /hpf; Nitrite,Urine Positive (Negative); Protein,Urine Negative (Negative); RBC,Urine 7 /hpf (0-5); Specific Gravity,Urine 1.006 (1.001-1.035); Squamous Epithelial Cell,Urine <1 /hpf (0-4); Urobilinogen,Urine <2.0 mg/dL (<2.0); WBC,Urine 47 /hpf (0-5)
--- NOTE | 2025-04-18 16:00 | ED ---
Female Urogenital HPI - General Chief complaint: Urogenital Stated complaint: Abd pain Time Seen by Provider: 04/18/25 14:42 Source: patient, EMS Mode of arrival: EMS Limitations: no limitations - History of Present Illness Initial comments: This is an 85-year-old female with history including COPD, cancer and angina presenting for UTI symptoms x 10 days. UTI symptoms for nearly 2 weeks. Patient states she was seen at urgent care where she was diagnosed with a UTI and prescribed Keflex, which she recently finished with ongoing dysuria and increased urinary frequency. Endorses use of Azo with some relief. Denies fever, chills, back pain, hematuria. MD Complaint: dysuria Onset/Timin -: days(s) Worsens with: urination - Related Data Home Medications Medication Instructions Recorded Confirmed diazePAM [Diazepam] 5 mg PO BID PRN 10/20/14 08/06/21 HYDROcodone/APAP 5-325MG [[place] 1 tab PO TID PRN 08/06/21 08/06/21 5-325] Previous Rx's Medication Instructions Recorded Aspirin 81 mg PO DAILY tab 08/11/21 Atorvastatin [Lipitor] 10 mg PO HS tab 08/11/21 Magnesium Hydroxide [Milk of 2,400 mg PO DAILY PRN ml 08/11/21 Magnesia Concentrate] Pantoprazole [Protonix] 40 mg PO AC-BRKFST tab 08/11/21 amantadine HCL [Symmetrel] 100 mg PO DAILY cap 08/11/21 Nitrofurantoin Monohyd/M-Cryst 100 mg PO BID #10 cap 04/18/25 [Nitrofurantoin Monohyd/M-Cryst 100 mg] Allergies Allergy/AdvReac Type Severity Reaction Status Date / Time aspirin Allergy NASAL Verified 08/06/21 17:26 [place] ibuprofen [From Motrin] Allergy Itching. Verified 08/06/21 17:26 NASAL CONGESTION levofloxacin [From Levaquin] Allergy Unknown Verified 08/06/21 17:26 primidone [From Mysoline] Allergy INCOHERENT Verified 08/06/21 17:26 propranolol HCl Allergy PALPATATION Verified 08/06/21 17:26 [From Inderal LA] S rofecoxib Allergy Unknown Verified 08/06/21 17:26 Sulfa (Sulfonamide Allergy Unknown Verified 08/06/21 17:26 Antibiotics) NON-STEROIDAL Allergy Itching Uncoded 08/05/16 10:54 ANTI-INFLAMMTORY AGEN Review of Systems ROS Statement: Those systems with pertinent positive or pertinent negative responses have been documented in the HPI. ROS Other: All systems not noted in ROS Statement are negative. Past Medical History Past Medical History: Cancer, Chest Pain / Angina, COPD, GERD/Reflux, Hyperlipidemia, Mitral Valve Prolapse (MVP), Neurologic Disorder, Osteoarthritis (OA) Additional Past Medical History / Comment(s): CURRENTLY BEING TREATED FOR UTI. 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 PARKINSON'S WITH Essential TREMORS. VARICOSE VEINS. ARRYTHMIA. DIVERICULOSIS. HIATAL HERNIA. SCOLIOSIS. CHRONIC BACK PAIN. SKIN CANCER. History of Any Multi-Drug Resistant Organisms: None Reported Past Surgical History: Breast Surgery, Cholecystectomy, Heart Catheterization, Orthopedic Surgery, Tonsillectomy Additional Past Surgical History / Comment(s): 1995 HEART CATH. 1995 RIGHT LEG VASCULAR BYPASS. RIGHT CATARACT. LEFT BREAST BX (NEG). RIGHT ROTATOR CUFF. BRAIN SURGERY TO CORRECT TREMER 04/16/19 AT [facility] Past Anesthesia/Blood Transfusion Reactions: No Reported Reaction Past Psychological History: Anxiety Smoking Status: Former smoker Past Alcohol Use History: None Reported Past Drug Use History: None Reported - Past Family History Mother Family Medical History: Cancer, Neurologic Disorder General Exam Limitations: no limitations General appearance: alert, in no apparent distress Head exam: Present: atraumatic, normocephalic, normal inspection Eye exam: Present: normal appearance, PERRL, EOMI. Absent: scleral icterus, c onjunctival injection, periorbital swelling ENT exam: Present: normal exam, mucous membranes moist Neck exam: Present: normal inspection. Absent: tenderness, meningismus, lymphadenopathy Respiratory exam: Present: normal lung sounds bilaterally. Absent: respiratory distress, wheezes, rales, rhonchi, stridor Cardiovascular Exam: Present: regular rate, normal rhythm, normal heart sounds. Absent: systolic murmur, diastolic murmur, rubs, gallop, clicks GI/Abdominal exam: Present: soft, tenderness (Positive suprapubic TTP), normal bowel sounds. Absent: distended, guarding, rebound, rigid Extremities exam: Present: normal inspection, full ROM, normal capillary refill. Absent: tenderness, pedal edema, joint swelling, calf tenderness Back exam: Present: normal inspection. Absent: CVA tenderness (R), CVA tenderness (L) Neurological exam: Present: alert, oriented X3, CN II-XII intact Psychiatric exam: Present: normal affect, normal mood Skin exam: Present: warm, dry, intact, normal color. Absent: rash Course Vital Signs 04/18/25 04/18/25 14:33 16:34 Temperature 98.1 F Pulse Rate 90 94 Respiratory 18 18 Rate Blood Pressure 157/77 155/90 O2 Sat by Pulse 97 99 Oximetry Medical Decision Making - Medical Decision Making Was pt. sent in by a medical professional or institution (, PA, CD TECHNICIAN, urgent care, hospital, or detention...) When possible be specific @ -No Did you speak to anyone other than the patient for history (EMS, parent, family, police, friend...)? What history was obtained from this source @ -No Did you review nursing and triage notes (agree or disagree)? Why? @ -I reviewed and agree with nursing and triage notes Were old charts reviewed (outside hosp., previous admission, EMS record, old EKG, old radiological studies, urgent care reports/EKG's, detention records)? Report findings @ -No old charts were reviewed Differential Diagnosis (chest pain, altered mental status, abdominal pain women, abdominal pain men, vaginal bleeding, weakness, fever, dyspnea, syncope, headache, dizziness, GI bleed, back pain, seizure, CVA, palpatations, mental health, musculoskeletal)? @ -Differential Abdominal Pain Women: Appendicitis, Cholecystitis, diverticulosis, ischemic bowel, pancreatitis, hepatitis, UTI, gastroenteritis, AAA, incarcerated hernia, bowel obstruction, constipation, inflammatory bowel, hepatitis, peptic ulcer disease, splenic infarction, perforated viscus, vulvitis, ovarian torsion, PID, kidney stone, placenta abruption, this is not meant to be an all-inclusive list EKG interpreted by me (3pts min.). @ -Not done X-rays interpreted by me (1pt min.). @ -None done CT interpreted by me (1pt min.). @ -None done U/S interpreted by me (1pt. min.). @ -None done What testing was considered but not performed or refused? (CT, X-rays, U/S, labs)? Why? @ -None What meds were considered but not given or refused? Why? @ -None Did you discuss the management of the patient with other professionals (professionals i.e. Dr., PA, CD TECHNICIAN, lab, RT, psych nurse, social work therapist, tar man, te acher, public relations officer, family caseworker)? Give summary @ -No Was smoking cessation discussed for >3mins.? @ -No Was critical care preformed (if so, how long)? @ -No Were there social determinants of health that impacted care today? How? (Homelessness, low income, unemployed, alcoholism, drug addiction, transportation, low edu. Level, literacy, decrease access to med. care, longterm, rehab)? @ -No Was there de-escalation of care discussed even if they declined (Discuss DNR or withdrawal of care, Hospice)? DNR status @ -No What co-morbidities impacted this encounter? (DM, HTN, Smoking, COPD, CAD, Cancer, CVA, ARF, Chemo, Hep., AIDS, mental health diagnosis, sleep apnea, morbid obesity)? @ -None Was patient admitted / discharged? Hospital course, mention meds given and route, prescriptions, significant lab abnormalities, going to OR and other pertinent info. @ -UA shows UTI with microscopic hematuria and positive nitrite. Urine culture positive for E. coli. Patient provided IM Rocephin and initial dose of p.o. Macrobid with remaining Macrobid regimen sent to patient's pharmacy. Vies increase water and cranberry juice intake. Follow-up with PCP for any ongoing or worsening symptoms. Discussed patient with Dr. Aguila. Undiagnosed new problem with uncertain prognosis? @ -No Drug Therapy requiring intensive monitoring for toxicity (Heparin, Nitro, Insulin, Cardizem)? @ -No Were any procedures done? @ -No Diagnosis/symptom? @ -UTI Acute, or Chronic, or Acute on Chronic? @ -Acute Uncomplicated (without systemic symptoms) or Complicated (systemic symptoms)? @ -Uncomplicated Side effects of treatment? @ -No Exacerbation, Progression, or Severe Exacerbation? @ -No Poses a threat to life or bodily function? How? (Chest pain, USA, NC, pneumonia, PE, COPD, DKA, ARF, appy, cholecystitis, CVA, Diverticulitis, Homicidal, Suicidal, threat to staff... and all critical care pts) @ -No - Lab Data Lab Results 04/18/25 Range/Units 14:58 Urine Color Yellow Urine Appearance Cloudy H (Clear) Urine pH 6.0 (5.0-8.0) Ur Specific [place] 1.006 (1.001-1.035) Urine Protein Negative (Negative) Urine Glucose (UA) Negative (Negative) Urine Ketones Negative (Negative) Urine Blood Negative (Negative) Urine Nitrite Positive H (Negative) Urine Bilirubin Negative (Negative) Urine Urobilinogen <2.0 (<2.0) mg/dL Ur Leukocyte Esterase Large H (Negative) Urine RBC 7 H (0-5) /hpf Urine WBC 47 H (0-5) /hpf Ur Squamous Epith Cells <1 (0-4) /hpf Urine Bacteria Occasional H (None) /hpf Urine Mucus Rare H (None) /hpf Disposition Clinical Impression: Urinary tract infection Disposition: HOME SELF-CARE Condition: Good Instructions (If sedation given, give patient instructions): Urinary Tract Infection in Women (ED) Additional Instructions: Increase water and cranberry juice intake. Follow-up with PCP for any ongoing or worsening symptoms. Prescriptions: Nitrofurantoin Monohyd/M-Cryst [Nitrofurantoin Monohyd/M-Cryst 100 mg] 100 mg PO BID #10 cap Is patient prescribed a controlled substance at d/c from ED?: No Referrals: Mark Ye MD [Primary Care Provider] - 1-2 days Time of Disposition: 16:00
[2025-04-18] MEDS: NITROFURANTOIN MONOHYD/M-CRYST 100 MG CAP PO STA (16:25)
[2025-04-18] MEDS: cefTRIAXone 1,000 MG VIAL (IM USE) IM STA (16:31)
[2025-04-18 16:35] VITALS: BP 155/90; PULSE 94
== END 2025-04-18 17:39 | disposition home or self-care (01) ==
LOC: EC 14:24
DX: N39.0 Urinary tract infection, site not specified (principal); Z87.891 Personal history of nicotine dependence; Z88.6 Allergy status to analgesic agent; Z88.2 Allergy status to sulfonamides; Z88.1 Allergy status to other antibiotic agents; Z88.8 Allergy status to other drugs, medicaments and biological substances
CPT/HCPCS: 81001; 87086; 87077; 87186; 99284; 96372; J0696